=== PATIENT | female | born 1940 | race Caucasian/White ===

== ENCOUNTER 2019-08-26 08:12 | Day surgery (SDC) | payer MEDICARE, OTHER ==
[~2019-08-26] VITALS: Ht 149.9 cm; Wt 95.9 kg
[~2019-08-26 08:12] MED LIST: ALBU8.5H5; ALPR2TAB2; ASPI-614; CALC480G; CARISOPRODOL; CELE200C; DOCU-131 PO; ESCI10TA10; ESZO3TAB28; FLUT1DIS3; GABA300C; LACT1CAP43; LEVO5TAB29; LOSA100T14; METF750T42; OMEP40CA42; ONDA4TAB7; OXYC-302; OXYC5TAB3 PO; REPA2TAB; TROS60CA3
[2019-08-26 09:00] VITALS: BP 141/75
[2019-08-26] MEDS ORDERED: PROPOFOL 10 MG/ML, 50ML ONE (09:10)
[2019-08-26] MEDS ORDERED: LACTATED RINGERS 1,000 ML IV SCH (09:21)
== END 2019-08-26 11:35 | disposition home or self-care (01) ==
LOC: OUT 08:12
DX: Z12.11 Encounter for screening for malignant neoplasm of colon (principal); D12.2 Benign neoplasm of ascending colon; D12.5 Benign neoplasm of sigmoid colon; D12.3 Benign neoplasm of transverse colon; K57.30 Diverticulosis of large intestine without perforation or abscess without bleeding; I10 Essential (primary) hypertension; E11.9 Type 2 diabetes mellitus without complications; J45.909 Unspecified asthma, uncomplicated; E66.9 Obesity, unspecified; Z86.010 Personal history of colon polyps
CPT/HCPCS: 45385; 82962; 88305; J2704; J7120